=== PATIENT | female | born 1935 | race Caucasian/White ===

== ENCOUNTER 2018-12-26 05:45 | Day surgery (SDC) | payer OTHER ==
[~2018-12-26 05:45] MED LIST: AVAPRO300 MG PO; CARDIZEM LA180 MG PO; COSOPT PF EYE1 EACH OP; GAS RELIEF125 M1 PO; INDUR PO; LASIX20 MG PO; LEVSIN/SL0.125 MG PO; LIPITOR20 MG PO; LUMIGAN2.5 M1 OP; LYRICA100 MG PO; MULTI-DAY VITA1 EACH PO; NOVOLIN 70100 UNIT/1 SUBCUTANEO; PEPCID20 MG PO; PLAVIX75 MG PO; SALAGEN7.5 MG PO; SYNTHROID50 MCG PO; VITAMIN D1000 UNI1 PO; [UNRECOGNIZED DRUG - OTHER]; [UNRECOGNIZED DRUG - SUPPLY]
== END 2018-12-26 11:10 | disposition home or self-care (01) ==
LOC: AMB-ENDOS 05:45
DX: D12.3 Benign neoplasm of transverse colon (principal)